=== PATIENT | female | born 1965 | race Caucasian/White ===

== ENCOUNTER 2023-01-12 06:49 | Emergency (ER) | payer OTHER, SELFPAY ==
[2023-01-12] VITALS (11 sets, daily range): BP systolic 102–131; BP diastolic 53–79; PULSE 48–70; RESP 15–18; TEMP 36.3; O2SAT 96–100; BMI 25.9
[2023-01-12 07:40] LABS: Add Manual Diff / Slide Review NO; Basophils Absolute Auto 0 /uL (0-100); Basophils Percent Auto 0.8 % (0-2); Eosinophils Absolute Auto 200 /uL (0-450); Eosinophils Percent Auto 3.9 % (2-4); Hematocrit 45.6 % (36-46); Hemoglobin 15.6 g/dL (12.0-16.0); Lymphocytes Absolute Auto 1800 /uL (1100-4500); Lymphocytes Percent Auto 30.4 % (25-40); Mean Corpuscular HGB Conc 34.3 % (30-36); Mean Corpuscular Hemoglobin 33.1 PG (26-34); Mean Corpuscular Volume 96.6 fL (80-100); Monocytes Absolute Auto 700 /uL (0-900); Neutrophils Absolute Auto 3300 /uL (1500-7000); Neutrophils Percent Auto 53.9 % (50-75); Platelet Count 238 X10^3/uL (150-400); Red Blood Cell Count 4.72 X10^6/uL (4.0-5.2); Red Cell Distribution Width 13.8 % (11.6-14.8)
--- NOTE | 2023-01-12 07:46 | DI.CT.S_ITS ---
PROCEDURE: CT CHEST ABD PEL W CON INDICATIONS: Abdominal pain TECHNIQUE: After the administration of intravenous contrast, 5 mm thick sections acquired from the lung apices to the symphysis. 5 mm coronal and sagittal reformats were performed, with additional 7 mm MIP reformats through the lungs. For radiation dose reduction, the following was used: automated exposure control, adjustment of mA and/or kV according to patient size. COMPARISON: None. FINDINGS: Image quality: Excellent. CHEST: Lungs and pleura: No acute airspace opacities. No pleural effusions or pneumothorax. Central and peripheral airways appear patent and normal in caliber. Biapical scarring. Mild paraseptal emphysema. A few solid pulmonary nodules, and benign juxtapleural nodules. For example, a 2 mm nodule in the right lung apex (series 5, image 61). Mediastinum: Heart size is normal. No pericardial effusion. No mediastinal or hilar adenopathy by size criteria. Thoracic aorta and central pulmonary arteries are normal in size. Esophagus is normal in caliber. No hiatal hernia. Chest wall: No axillary or supraclavicular adenopathy by size criteria. Thyroid gland is unremarkable . ABDOMEN: Solid organs: Liver is normal in size and enhancement. Gallbladder is surgically absent . Biliary system is non dilated. Pancreas enhances normally. Spleen is normal in size and enhancement. No adrenal nodules. Kidneys demonstrate normal size and enhancement, without hydronephrosis. Peritoneum and bowel: Bowel loops demonstrate normal wall thickness and caliber. No free fluid or air. Normal appendix. Nodes and vessels: No retroperitoneal or mesenteric adenopathy by size criteria. Aorta and inferior vena cava are normal in size. Miscellaneous: No ventral hernias. PELVIS: Genitourinary: Bladder wall thickness is normal. Miscellaneous: No inguinal hernias or adenopathy. Bones: No suspicious bony lesions. No vertebral body compression fractures. IMPRESSION: No acute abnormality. Scattered pulmonary micro nodules. Consider [address] per ACR consensus guidelines. Dictated by: Cortez De Anda M.D. on 01/12/2023 at 8:46 Approved by: Cortez De Anda M.D. on 01/12/2023 at 8:52
[2023-01-12] MEDS: ONDANSETRON 4 MG/2 ML INJ IV (07:48)
[2023-01-12] MEDS: SODIUM CHLORIDE 0.9% 500 ML 1000 ML IV (07:49)
--- NOTE | 2023-01-12 07:49 | ED_ITS ---
HPI - Nausea/Vomiting/Diarrhea General Chief complaint: Nausea/Vomiting/Diarrhea Stated complaint: rectal bleeding and vomiting blood Time Seen by Provider: 01/12/23 07:17 Source: patient Mode of arrival: Ambulatory History of Present Illness HPI Narrative: Patient here for bright red blood with hematemesis, not coffee-ground. Also has had dark black stool. This started 6:00 p.m. last night. Has felt tired fatigued and slightly dizzy. No chest pain no palpitations no dyspnea. Patient states 3 days ago started having bilateral lower back pain. No numbness tingling or weakness or syncope. No saddle paresthesia no leg or feet numbness or tingling. Denies any abdominal pain or chest pain. Is not on any blood thinners. Denies daily alcohol use or NSAID use. Patient states she is not allergic to Dilaudid. Patient states she sees GI specialist in [place], has history of intestinal metaplasia, gastroparesis. Just had biopsy 2 weeks ago and noncancerous. Last colonoscopy 1 year ago. Had EGD done 2 weeks ago. Related Data Previous Rx's Medication Instructions Recorded benzonatate 100 mg capsule 100 mg PO BID PRN cough #20 caps 09/08/22 methylprednisolone 4 mg tablets in See Rx Instructions PO PER PKG DIR 09/08/22 a dose pack (Medrol (Art)) #21 ea Allergies Allergy/AdvReac Type Severity Reaction Status Date / Time acetaminophen [From Vicodin] Allergy Severe Anaphylaxis Verified 09/08/22 14:45 codeine Allergy Severe Anaphylaxis Verified 09/08/22 14:45 hydrocodone [From Vicodin] Allergy Severe Anaphylaxis Verified 09/08/22 14:45 moxifloxacin Allergy Severe Anaphylaxis Verified 09/08/22 14:45 bee venom protein (honey bee) Allergy Anaphylaxis Verified 09/08/22 14:45 pencillin Allergy Severe Anaphylaxis Uncoded 09/08/22 14:45 Review of Systems Review of Systems Narrative: GENERAL: negative chills, positive fatigue, malaise, negative fever, sweats. HEENT: negative sinus pain, ear pain, sore throat RESPIRATORY: negative dyspnea, cough CARDIOVASCULAR: negative chest pain, palpitations GASTROINTESTINAL: Positive nausea, vomiting, positive GI bleed negative abdominal pain : negative dysuria, frequency, hematuria MUSCULOSKELETAL: negative muscle or bony pain SKIN: negative rash, skin lesions NEUROLOGIC: negative weakness, numbness, positive dizziness ROS Unobtainable: All systems reviewed & are unremarkable except as noted in HPI and below Patient History Social History Smoking Status: Current every day smoker Smoking Status: Current every day smoker tobacco type: cigarettes alcohol intake frequency: 0-2 drinks per day Alcohol type: beer Substance Use Type: marijuana Exam Narrative Exam Narrative: GENERAL: in no distress, not toxic not dyspneic HEAD: Normocephalic. EYES: Pupils equal round, pink conjunctiva ENT: Mucous membranes moist. NECK: Trachea midline. CARDIOVASCULAR: Regular rate and rhythm without murmurs RESPIRATORY: Clear to auscultation. Breath sounds equal bilaterally. No wheezes, rales, or rhonchi. GASTROINTESTINAL: Abdomen soft, non-tender, abdomen soft nontender no tenderness all 4 quadrants, no peritoneal signs, bowel sounds are present. No CVA t enderness. There is mild tenderness to the bilateral lower paralumbar muscles. No midline tenderness or step-off. EXTREMITIES: No gross deformities. BACK: No flank tenderness. NEURO: AOx4. SKIN: Warm and dry PSYCH: Not anxious, is cooperative Initial Vital Signs Initial Vital Signs: Vital Signs Temperature 97.4 F L 01/12/23 06:59 Pulse Rate 70 01/12/23 06:59 Respiratory Rate 18 01/12/23 06:59 Blood Pressure 128/65 01/12/23 06:59 Pulse Oximetry 100 01/12/23 06:59 Oxygen Delivery Method Room Air 01/12/23 06:59 Course Orders Ordered: Discontinued Medications Hydromorphone HCl (Hydromorphone 1 Mg Inj) 0.5 mg IV NOW ONE Stop: 01/12/23 07:53 Last Admin: 01/12/23 08:18 Dose: 0.5 mg Documented By: NR Hydromorphone HCl (Hydromorphone 1 Mg Inj) 0.5 mg IV NOW ONE Stop: 01/12/23 08:17 Last Admin: 01/12/23 08:18 Dose: 0.5 mg Documented By: NR Sodium Chloride (Normal Saline 0.9%) 500 mls @ 1,000 mls/hr IV BOLUS ONE Stop: 01/12/23 07:48 Last Infusion: 01/12/23 08:23 Dose: 0 mls/hr Documented By: Admin: 01/12/23 07:49 Dose: 1,000 mls/hr Documented By: COBY Ondansetron HCl (Ondansetron 4 Mg/2 Ml Inj) 4 mg IV NOW ONE Stop: 01/12/23 07:20 Last Admin: 01/12/23 07:48 Dose: 4 mg Documented By: NR Pantoprazole Sodium (Pantoprazole 40 Mg Vial) 40 mg IV NOW ONE Stop: 01/12/23 07:59 Last Admin: 01/12/23 08:15 Dose: 40 mg Documented By: NR Vital Signs Vital signs: Vital Signs - 8 hr 01/12/23 06:59 01/12/23 07:32 01/12/23 07:33 Temperature 97.4 F L Pulse Rate 70 57 L 56 L Respiratory Rate 18 Blood Pressure 128/65 Pulse Oximetry 100 100 100 Oxygen Delivery Method Room Air 01/12/23 07:33 01/12/23 07:46 01/12/23 07:46 Temperature Pulse Rate 61 Respiratory Rate Blood Pressure 127/57 L 105/53 L Pulse Oximetry 96 Oxygen Delivery Method 01/12/23 08:09 01/12/23 08:16 01/12/23 08:16 Temperature Pulse Rate 53 L 59 L Respiratory Rate Blood Pressure 109/79 Pulse Oximetry 96 99 Oxygen Delivery Method 01/12/23 08:30 01/12/23 08:31 01/12/23 08:31 Temperature Pulse Rate 50 L 57 L Respiratory Rate Blood Pressure 102/62 Pulse Oximetry 97 97 Oxygen Delivery Method 01/12/23 08:46 01/12/23 08:46 01/12/23 09:00 Temperature Pulse Rate 48 L 49 L Respiratory Rate 15 18 Blood Pressure 119/70 Pulse Oximetry 98 99 Oxygen Delivery Method 01/12/23 09:01 01/12/23 09:01 Temperature Pulse Rate 50 L Respiratory Rate 18 Blood Pressure 131/76 Pulse Oximetry 97 Oxygen Delivery Method MDM - Nausea/Vomiting/Diarrhea Lab Data 01/12/23 07:30 01/12/23 07:30 Labs: Lab Results 01/12/23 01/12/23 01/12/23 Range/Units 07:30 07:30 07:30 WBC 6.0 (4.5-11.0) X10^3/uL RBC 4.72 (4.0-5.2) X10^6/uL Hgb 15.6 (12.0-16.0) g/dL Hct 45.6 (36-46) % MCV 96.6 (80-100) fL MCH 33.1 (26-34) PG MCHC 34.3 (30-36) % RDW 13.8 (11.6-14.8) % Plt Count 238 (150-400) X10^3/uL Neut % (Auto) 53.9 (50-75) % Lymph % (Auto) 30.4 (25-40) % [place] % (Auto) 11.0 (3-14) % Eos % (Auto) 3.9 (2-4) % Baso % (Auto) 0.8 (0-2) % Neut # (Auto) 3300 (7817-8616) /uL Lymph # (Auto) 1800 (5820-5000) /uL [place] # (Auto) 700 (0-900) /uL Eos # (Auto) 200 (0-450) /uL Baso # (Auto) 0 (0-100) /uL PT 10.8 (10.1-12.7) SECONDS INR 0.9 (0.9-1.3) APTT 33 (26-36) SECONDS Sodium 139 (137-145) mmol/L Potassium 3.9 (3.4-5.1) mmol/L Chloride 105 (98-107) mmol/L Carbon Dioxide 28 (22-32) mmol/L BUN 9 (7-17) mg/dL Creatinine 0.70 (0.52-1.04) mg/dL Estimated GFR > 60 (>60) mL/min BUN/Creatinine Ratio 12.9 (6-22) Glucose 97 (70-100) mg/dL Calcium 8.9 (8.4-10.2) mg/dL Total Bilirubin 1.3 (0.2-1.3) mg/dL AST 25 (14-36) IU/L ALT 24 (<35) IU/L Alkaline Phosphatase 108 (38-126) U/L Total Creatine Kinase 108 (30-135) U/L CK-MB (CK-2) 0.47 (<2.37) ng/mL CK-MB (CK-2) Rel Index 0.4 L (1.5-5.0) % Troponin I < 0.012 (0.01-0.034) ng/mL Total Protein 7.4 (6.3-8.2) g/dL Albumin 4.3 (3.5-5.0) g/dL Globulin 3.1 (1.7-4.1) g/dL Albumin/Globulin Ratio 1.4 (1.0-2.8) Lipase 94 (23-300) U/L Urine Dip Bedside Urine Glucose Negative Bedside Urine Bilirubin - Negative Bedside Urine Ketone - Negative Urine Specific Wheeler 1.020 Bedside Urine Occult Blood - Negative Bedside Urine pH 6.0 Bedside Urine Protein - Negative Bedside Urine Urobilinogen - Negative Bedside Urine Nitrite - Negative Bedside Urine Leukocytes - Negative Esterase Imaging Data CT chest abdomen and pelvis: Radiologist's Impression: CHEST: Lungs and pleura: No acute airspace opacities. No pleural effusions or pneumothorax. Central and peripheral airways appear patent and normal in caliber. Biapical scarring. Mild paraseptal emphysema. A few solid pulmonary nodules, and benign juxtapleural nodules. For example, a 2 mm nodule in the right lung apex (series 5, image 61). Mediastinum: Heart size is normal. No pericardial effusion. No mediastinal or hilar adenopathy by size criteria. Thoracic aorta and central pulmonary arteries are normal in size. Esophagus is normal in caliber. No hiatal hernia. Chest wall: No axillary or supraclavicular adenopathy by size criteria. Thyroid gland is unremarkable . ABDOMEN: Solid organs: Liver is normal in size and enhancement. Gallbladder is surgically absent . Biliary system is non dilated. Pancreas enhances normally. Spleen is normal in size and enhancement. No adrenal nodules. Kidneys demonstrate normal size and enhancement, without hydronephrosis. Peritoneum and bowel: Bowel loops demonstrate normal wall thickness and caliber. No free fluid or air. Normal appendix. Nodes and vessels: No retroperitoneal or mesenteric adenopathy by size criteria. Aorta and inferior vena cava are normal in size. Miscellaneous: No ventral hernias. PELVIS: Genitourinary: Bladder wall thickness is normal. Miscellaneous: No inguinal hernias or adenopathy. Bones: No suspicious bony lesions. No vertebral body compression fractures. IMPRESSION: No acute abnormality. Scattered pulmonary micro nodules. Consider [address] per ACR consensus guidelines. MDM Narrative Medical decision making narrative: Patient here for bright red blood with hematemesis, not coffee-ground. Also has had dark black stool. This started 6:00 p.m. last night. Has felt tired fatigued and slightly dizzy. No chest pain no palpitations no dyspnea. Patient states 3 days ago started having bilateral lower back pain. No numbness tingling or weakness or syncope. No saddle paresthesia no leg or feet numbness or tingling. Denies any abdominal pain or chest pain. Is not on any blood thinners. Denies daily alcohol use or NSAID use. Patient states she is not allergic to Dilaudid. Patient states she sees GI specialist in [place], has history of intestinal metaplasia, gastroparesis. Just had biopsy 2 weeks ago and noncancerous. Last colonoscopy 1 year ago. Had EGD done 2 weeks ago. After history and exam CBC CMP lipase PT PTT EKG troponin CT chest abdomen pelvis ordered MDM CC: Hematemesis, GI bleed Complicating co-morbidities: History of gastroparesis, intestinal metaplasia Data collected from: Patient Medical records reviewed: December 16, [address] [facility] [address] [place] gastro[facility]ology upper GI endoscopy reviewed. Esophagitis noted. Dilation was performed. Negative H pylori. No chronic gastritis. Biopsies were completed. Differential considered: Includes but not limited to upper GI bleed lower GI bleed diverticulosis diverticulitis, neoplasm Exam documented above, pertinent findings include: Nontender abdomen no CVA tenderness Lab Test results independently reviewed as above. Pertinent findings: WBC 6.0 hemoglobin 15.6 hematocrit 45 platelets 238 AST 25 ALT 24 alkaline phosphatase 108 troponin less than 0.012 lipase 94 Independently reviewed EKG as above sinus bradycardia rate [address] elevation or depression Imaging studies independently reviewed: CT chest abdomen pelvis no acute process Consultations: Treatments: Dilaudid Zofran normal saline Protonix Re-evaluations: 7:45 a.m.. Patient states now she is having left lower quadrant abdominal pain. 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 She states she is had Dilaudid for pain in the past. No side effects or allergic reaction 9:08 a.m.. Updated patient results. Patient denies any dysuria with these symptoms. At this time laboratory studies are reassuring. As well as imaging. She will need to follow up with her wireless internet installer for likely repeat endoscopy. She is on omeprazole, she states her GI doctor has placed her on many different antacids. They are trying to find the right balance. Return precautions reviewed with her not toxic at discharge. Urinalysis point of care negative. No new prescriptions indicated at this time. Pain is controlled. She desires discharge home. Reviewed with her black stool likely upper GI bleed by the time it reaches the colon it becomes very dark. She understands. Discussion: Appropriate for discharge home. Not toxic at discharge. Return precautions reviewed with patient. She does have gastroenterology services to follow up with. No new medications indicated at this time. She desires discharge home. 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 No dyspnea. No syncope. No t achycardia no hypotension no hypoxia, lower back pain nonspecific. I did discuss with patient. She had this before doing yard work. Appropriate for outpatient follow up with her wireless internet installer. Diagnosis: Hematemesis/gastritis Discharge Plan Departure Patient Disposition: Home Clinical Impression: Hematemesis Instructions: Gastrointestinal Bleeding Activity Restrictions/Additional Instructions: Please call your gastroenterology provider today for office re-evaluation within a week and to possibly schedule endoscopy of the stomach as well as colonoscopy. Please do continue home medications and antacids. Return if worse if any questions or concerns or any dizziness/weakness/short of breath or increase bleeding/vomiting blood/black stools. Prescriptions: No Action methylprednisolone [Medrol (Art)] 4 mg tablets,dose pack See Rx Instructions PO PER PKG DIR Qty: 21 0RF Rx Instructions: PO PER PKG DIR benzonatate 100 mg capsule 100 mg PO BID PRN (Reason: cough) Qty: 20 0RF Referrals: Miscellaneous,DoctorMD [Primary Care Provider] - Stand Alone Forms: Patient Portal/API
[2023-01-12 07:54] LABS: INR 0.9 (0.9-1.3); Prothrombin Time 10.8 SECONDS (10.1-12.7)
[2023-01-12 07:56] LABS: PTT Partial Thromboplastin Tim 33 SECONDS (26-36)
[2023-01-12 07:59] LABS: HEMOLYSIS < 15 (0-50); Potassium 3.9 mmol/L (3.4-5.1)
[2023-01-12 08:00] LABS: Alanine Aminotransferase 24 IU/L (<35); Albumin 4.3 g/dL (3.5-5.0); Albumin Globulin Ratio 1.4 (1.0-2.8); Alkaline Phosphatase 108 U/L (38-126); Aspartate Aminotransferase 25 IU/L (14-36); BUN Creatinine Ratio 12.9 (6-22); Bilirubin Total 1.3 mg/dL (0.2-1.3); Blood Urea Nitrogen 9 mg/dL (7-17); Calcium 8.9 mg/dL (8.4-10.2); Carbon Dioxide 28 mmol/L (22-32); Chloride 105 mmol/L (98-107); Creatine Kinase 108 U/L (30-135); Estimated Glomerular Filt Rate > 60 mL/min (>60); Globulin 3.1 g/dL (1.7-4.1); Glucose 97 mg/dL (70-100); Lipase 94 U/L (23-300); Sodium 139 mmol/L (137-145); Total Protein 7.4 g/dL (6.3-8.2)
[2023-01-12 08:11] LABS: Troponin I < 0.012 ng/mL (0.01-0.034)
[2023-01-12 08:15] LABS: CKMB % Relative Index 0.4 % (1.5-5.0); Creatine Kinase MB 0.47 ng/mL (<2.37)
[2023-01-12] MEDS: PANTOPRAZOLE 40 MG VIAL IV (08:15)
[2023-01-12] MEDS: HYDROMORPHONE 1 MG INJ 0.5 MG IV ×2 (08:18)
== END 2023-01-12 09:22 | disposition home or self-care (01) ==
PROVIDERS: Emergency Provider Emergency Medicine
DX: K92.0 Hematemesis (principal); R10.32 Left lower quadrant pain; K62.5 Hemorrhage of anus and rectum
CPT/HCPCS: 36415; 71260; 74177; 80053; 81003; 82550; 82553; 83690; 84484; 85025; 85610; 85730; 93005; 96361; 96374; 96375; 99284; C9113; J1170; J2405

== ENCOUNTER 2023-04-29 08:56 | Emergency (ER) | payer OTHER, SELFPAY ==
[2023-04-29] VITALS (7 sets, daily range): BP systolic 116–139; BP diastolic 68–79; PULSE 55–65; RESP 16–24; TEMP 36.8; O2SAT 97–100; BMI 25.4
--- NOTE | 2023-04-29 09:03 | ED.GENADULT ---
HPI - General Adult General Chief complaint: Allergic Reaction Stated complaint: stung by bee, used EPI, feeling chest tightness Time Seen by Provider: 04/29/23 09:02 History of Present Illness HPI narrative: 58-year-old female daily smoker with extensive history of anaphylaxis presents with a chief complaint a bee sting at about 7:50 a.m. this morning. She is had significant reactions in the past and almost immediately use her epinephrine pen. She was stung on her left ankle. She denies any symptoms such as itching, rash, swelling of face, tongue, lip, throat, no trouble breathing, no GI symptoms such as nausea, vomiting or diarrhea. She did not take any other medications other than epinephrine such as Benadryl. After administering the epinephrine she feels a bit jittery but is otherwise well Related Data Previous Rx's Medication Instructions Recorded epinephrine 0.3 mg/0.3 mL 0.3 mg (0.3 mL) IM Q5-15M PRN 04/29/23 injection, auto-injector (EpiPen anaphylaxis #2 ea 2-Art) prednisone 20 mg tablet 20 mg PO DAILY #5 tabs 04/29/23 Allergies Allergy/AdvReac Type Severity Reaction Status Date / Time acetaminophen [From Vicodin] Allergy Severe Anaphylaxis Verified 04/29/23 09:17 codeine Allergy Severe Anaphylaxis Verified 04/29/23 09:17 hydrocodone [From Vicodin] Allergy Severe Anaphylaxis Verified 04/29/23 09:17 moxifloxacin Allergy Severe Anaphylaxis Verified 04/29/23 09:17 bee venom protein (honey bee) Allergy Anaphylaxis Verified 04/29/23 09:17 pencillin Allergy Severe Anaphylaxis Uncoded 04/29/23 09:17 Review of Systems Review of Systems Narrative: GENERAL: Denies chills, fatigue, malaise, fever, sweats. HEENT: Denies sinus pain, ear pain, sore throat, difficulty swallowing, dizziness. RESPIRATORY: Denies dyspnea, cough, wheezing, hemoptysis, sputum. CARDIOVASCULAR: Denies chest pain, palpitations, orthopnea, edema, GASTROINTESTINAL: Denies nausea, vomiting, abdominal pain, diarrhea, constipation, melena. : Denies dysuria, frequency, incontinence, hematuria, urinary retention. MUSCULOSKELETAL: denies weakness, joint pain, or bony pain SKIN: Denies rash, skin lesions, or other NEUROLOGIC: Denies weakness, headache, numbness, change in speech, confusion, seizures, incoordination. PSYCHIATRIC: No concerning psychosocial issues. 12 point review of systems is negative except for those stated above Patient History Social History Smoking Status: Current every day smoker Smoking Status: Current every day smoker tobacco type: cigarettes alcohol intake frequency: 0-2 drinks per day Alcohol type: beer Substance Use Type: marijuana Exam Narrative Exam Narrative: GENERAL: [58] year old patient appears stated age. Well-developed patient, in mild distress. HEAD: Atraumatic. Normocephalic. EYES: Pupils equal round and reactive. Extraocular motions intact. No scleral icterus. No injection or drainage. ENT: Nose without bleeding, purulent drainage. Throat without erythema, tonsillar hypertrophy or exudate. Airway patent. NECK: Trachea midline. Non tender CARDIOVASCULAR: Regular rate and rhythm without murmurs, gallops, or rubs. RESPIRATORY: Clear to auscultation. Breath sounds equal bilaterally. No wheezes, rales, or rhonchi. GASTROINTESTINAL: Abdomen soft, non-tender, nondistended. EXTREMITIES: No edema or joint tenderness. BACK: Nontender without deformity or crepitance. No flank tenderness. NEURO: AOx3. SKIN: No rash or erythema of visible areas Initial Vital Signs Initial Vital Signs: Vital Signs Temperature 98.2 F 04/29/23 09:05 Pulse Rate 65 04/29/23 09:05 Respiratory Rate 24 04/29/23 09:05 Blood Pressure 130/79 04/29/23 09:05 Pulse Oximetry 100 04/29/23 09:05 Oxygen Delivery Method Room Air 04/29/23 09:05 Course Orders Ordered: Discontinued Medications Dexamethasone (Dexamethasone 10 Mg/Ml Vial) 10 mg PO NOW ONE Stop: 04/29/23 09:03 Last Admin: 04/29/23 09:11 Dose: 10 mg Documented By: NR Diphenhydramine HCl (Diphenhydramine 25 Mg Tablet) 50 mg PO NOW ONE Stop: 04/29/23 09:03 Last Admin: 04/29/23 09:11 Dose: 50 mg Documented By: NR Famotidine (Famotidine 20 Mg Tablet) 20 mg PO NOW ONE Stop: 04/29/23 09:04 Last Admin: 04/29/23 09:11 Dose: 20 mg Documented By: NR Vital Signs Vital signs: Vital Signs - 8 hr 04/29/23 09:05 04/29/23 09:13 04/29/23 09:30 Temperature 98.2 F Pulse Rate 65 61 Respiratory Rate 24 Blood Pressure 130/79 129/78 Pulse Oximetry 100 100 Oxygen Delivery Method Room Air 04/29/23 09:30 04/29/23 09:40 04/29/23 09:40 Temperature Pulse Rate 57 L 64 Respiratory Rate Blood Pressure 116/68 Pulse Oximetry 97 99 Oxygen Delivery Method 04/29/23 10:00 04/29/23 10:00 04/29/23 10:29 Temperature Pulse Rate 56 L 55 L Respiratory Rate 16 Blood Pressure 118/77 Pulse Oximetry 98 99 Oxygen Delivery Method Room Air 04/29/23 10:30 Temperature Pulse Rate Respiratory Rate Blood Pressure 139/74 Pulse Oximetry Oxygen Delivery Method Medical Decision Making MDM Narrative Medical decision making narrative: [58] year old patient presents with bee sting and history of anaphylaxis, lacking any symptoms other than pain at the sting location Multiple etiologies for patient's symptoms considered including, but not limited to: [Local reaction versus anaphylaxis versus other] Prior Charts reviewed in our EMR Primary Historian: patient History and physical exam are very reassuring, no elements suggestive of allergic reaction in her history nor on her exam here in the department. She is observed for 90 minutes and requests discharge. Findings and discharge diagnosis discussed with patient/family followed by verbalization of understanding Return precautions discussed with patient/family whom verbalize understanding of diagnosis and plan Discharge Plan Departure Patient Disposition: Home Clinical Impression: Accidental bee sting Instructions: DI for Insect Bites and Stings Activity Restrictions/Additional Instructions: *You have been diagnosed with [allergic reaction] *What to do: *Please continue to take your regular medications as directed. [x ] New medication prescriptions sent to your pharmacy: [ [facility]] [ ] New medication written as a paper prescription [ ] No new medications given *Please consider the routine use of over the counter antihistamines over the next few days 1. H1 blockers: Benadryl (Diphenhydramine), Zyrtec (Cetirizine), Hope (Fexofenadine) or Claritin (Loratadine) along with, 2. H2 blockers: Famotidine or Cimetidine *If you can please avoid what triggered your reaction today *Please follow up with your primary care provider in 2-3 days, call for an appointment. Let them know you were seen in the Emergency Department and that we ask that you be seen in follow up. We will electronically transmit a record of today's note if your PCP is in our system *If you do not have a primary care provider please contact the [facility] Resource line at [phone]. They will ask some questions about your medical history and help get you set up with a doctor in the community. *Return to Emergency Department if you should have any new, worsening or concerning symptoms, such as swelling of tongue, throat, trouble breathing, or other concerning symptoms Prescriptions: New prednisone 20 mg tablet 20 mg PO DAILY Qty: 5 0RF Rx Instructions: administer with food or milk epinephrine [EpiPen 2-Art] 0.3 mg/0.3 mL auto-injector 0.3 mg IM Q5-15M PRN (Reason: anaphylaxis) Qty: 2 0RF Rx Instructions: do not exceed 3 doses per episode Referrals: Fran Askew MD [Primary Care Provider] - Stand Alone Forms: Patient Portal/API, Work Release Note
[2023-04-29] MEDS: FAMOTIDINE 20 MG TABLET PO (09:11)
[2023-04-29] MEDS: DEXAMETHASONE 10 MG/ML VIAL PO (09:11)
[2023-04-29] MEDS: diphenhydrAMINE 25 MG TABLET 50 MG PO (09:11)
== END 2023-04-29 10:39 | disposition home or self-care (01) ==
PROVIDERS: Emergency Provider Emergency Medicine; PCP Family Medicine
DX: T63.441A Toxic effect of venom of bees, accidental (unintentional), initial encounter (principal); Z87.892 Personal history of anaphylaxis
CPT/HCPCS: 99283; A9270; J1100

== ENCOUNTER 2023-06-24 07:48 | Emergency (ER) | payer OTHER, SELFPAY ==
[2023-06-24 08:01] VITALS: BP 105/69; PULSE 65; RESP 18; TEMP 37.1; O2SAT 99; BMI 24.3
--- NOTE | 2023-06-24 08:18 | ED.URI ---
HPI - URI/Sore Throat General Chief Complaint: Upper Respiratory Symptoms Stated Complaint: covid+ T-7/pain on RT side head/dry heaves/dehydra Time Seen by Provider: 06/24/23 08:17 Source: patient Mode of arrival: Family Vehicle History of Present Illness HPI Narrative: Patient is a 58-year-old female with multiple anaphylactic allergies presenting today with headache nausea vomiting diarrhea. She says she self tested for COVID 1 week ago after travel. However she has headache behind her left eye she sensitive to light. She is been taking [id number] medications without any relief. She reports that she is dry heaving this morning. She is not able to keep anything down. She is had a couple episodes of diarrhea but does not report that the diarrhea is bad. Really complaining of headache today. She is currently afebrile Related Data Previous Rx's Medication Instructions Recorded epinephrine 0.3 mg/0.3 mL 0.3 mg (0.3 mL) IM Q5-15M PRN 04/29/23 injection, auto-injector (EpiPen anaphylaxis #2 ea 2-Art) prednisone 20 mg tablet 20 mg PO DAILY #5 tabs 04/29/23 ondansetron 4 mg disintegrating 4 mg PO Q8H PRN nausea and 06/24/23 tablet vomiting #20 tabs Allergies Allergy/AdvReac Type Severity Reaction Status Date / Time acetaminophen [From Vicodin] Allergy Severe Anaphylaxis Verified 06/24/23 08:06 codeine Allergy Severe Anaphylaxis Verified 06/24/23 08:06 hydrocodone [From Vicodin] Allergy Severe Anaphylaxis Verified 06/24/23 08:06 moxifloxacin Allergy Severe Anaphylaxis Verified 06/24/23 08:06 bee venom protein (honey bee) Allergy Anaphylaxis Verified 06/24/23 08:06 pencillin Allergy Severe Anaphylaxis Uncoded 06/24/23 08:06 Review of Systems Review of Systems ROS Unobtainable: All systems reviewed & are unremarkable except as noted in HPI and below Patient History Social History Smoking Status: Current every day smoker Smoking Status: Current every day smoker tobacco type: cigarettes alcohol intake frequency: 0-2 drinks per day Alcohol type: beer Substance Use Type: marijuana Exam Initial Vital Signs Initial Vital Signs: Vital Signs Temperature 98.8 F 06/24/23 08:01 Pulse Rate 65 06/24/23 08:01 Respiratory Rate 18 06/24/23 08:01 Blood Pressure 105/69 06/24/23 08:01 Pulse Oximetry 99 06/24/23 08:01 Oxygen Delivery Method Room Air 06/24/23 08:01 GENERAL: Alert 58-year-old female appears in pain in dark room clutching head HEENT: Head atraumatic,EOMI, pupils reactive, face symmetric, neck supple CARDIOVASCULAR: Regular rate and rhythm without murmurs, rubs or gallops. RESPIRATORY: Breath sounds equal bilaterally, no wheezes rales or rhonchi. ABDOMEN: Soft, nontender. Normoactive bowel sounds all 4 quadrants. No guarding or rebound. EXTREMITIES: Normal range of motion, no clubbing or edema. Neurovascularly intact NEUROLOGICAL: Alert and oriented x4.Normal gait and speech. SKIN: Warm, dry, no laceration, no petechiae, no rashes or lesions. Scores NIH Stroke Scale Level of Conciousness: Alert, keenly responsive Ask month/age: Answers both questions correctly. Open/close eyes, close hand: Performs both tasks correctly Best gaze horizontal: Normal Visual moore: No visual loss Facial palsy: Normal symetrical movement Left arm drift: No drift for full 10 sec Right arm drift: No drift for full 10 sec Left leg drift: No drift for full 5 sec Right leg drift: No drift for full 5 sec Limb ataxia: Absent Sensory on face/arms/legs: Normal, no sensory loss Best language: No aphasia, normal Dysarthria: Normal Extinction or inattention: No abnormality Total NIH Stroke scale score: 0 Course Orders Ordered: ED Orders 06/24/23 08:50 CBC Auto Diff [Complete Blood Count AUTO DIFF] Stat CMP [Comprehensive Metabolic Panel] Stat Discontinued Medications Diphenhydramine HCl (Diphenhydramine 50 Mg/Ml Vial) 25 mg IV NOW ONE Stop: 06/24/23 08:43 Last Admin: 06/24/23 08:50 Dose: 25 mg Documented By: BRIAN Sodium Chloride (Normal Saline 0.9%) 1,000 mls @ 1,000 mls/hr IV BOLUS ONE Stop: 06/24/23 09:41 Last Infusion: 06/24/23 09:52 Dose: Infused Documented By: Admin: 06/24/23 08:50 Dose: 1,000 mls/hr Documented By: BRIAN Ketorolac Tromethamine (Ketorolac 30 Mg/Ml Vial) 15 mg IV NOW ONE Stop: 06/24/23 08:43 Last Admin: 06/24/23 08:50 Dose: 15 mg Documented By: BRIAN Metoclopramide HCl (Metoclopramide 10 Mg/2 Ml Inj) 10 mg IV NOW ONE Stop: 06/24/23 08:43 Last Admin: 06/24/23 08:50 Dose: 10 mg Documented By: BRIAN Vital Signs Vital signs: Vital Signs - 8 hr 06/24/23 08:01 06/24/23 08:49 06/24/23 08:50 Temperature 98.8 F Pulse Rate 65 59 L Respiratory Rate 18 Blood Pressure 105/69 107/66 Pulse Oximetry 99 94 Oxygen Delivery Method Room Air 06/24/23 08:50 06/24/23 09:00 06/24/23 09:00 Temperature Pulse Rate 59 L 56 L Respiratory Rate 16 Blood Pressure 124/75 Pulse Oximetry 100 100 Oxygen Delivery Method Room Air 06/24/23 09:29 06/24/23 09:30 Temperature Pulse Rate 56 L Respiratory Rate Blood Pressure 99/62 Pulse Oximetry 99 Oxygen Delivery Method MDM - URI/Sore Throat Lab Data 06/24/23 08:50 06/24/23 08:50 Labs: Lab Results 06/24/23 Range/Units 08:50 WBC 4.0 L (4.5-11.0) X10^3/uL RBC 4.81 (4.0-5.2) X10^6/uL Hgb 16.2 H (12.0-16.0) g/dL Hct 46.8 H (36-46) % MCV 97.2 (80-100) fL MCH 33.6 (26-34) PG MCHC 34.5 (30-36) % RDW 13.3 (11.6-14.8) % Plt Count 187 (150-400) X10^3/uL Neut % (Auto) 52.0 (50-75) % Lymph % (Auto) 25.9 (25-40) % [place] % (Auto) 19.3 H (3-14) % Eos % (Auto) 2.1 (2-4) % Baso % (Auto) 0.7 (0-2) % Neut # (Auto) 2100 (4668-7205) /uL Lymph # (Auto) 1000 L (3831-5313) /uL [place] # (Auto) 800 (0-900) /uL Eos # (Auto) 100 (0-450) /uL Baso # (Auto) 0 (0-100) /uL Sodium 135 L (137-145) mmol/L Potassium 4.5 (3.4-5.1) mmol/L Chloride 101 (98-107) mmol/L Carbon Dioxide 28 (22-32) mmol/L BUN 7 (7-17) mg/dL Creatinine 0.73 (0.52-1.04) mg/dL Estimated GFR > 60 (>60) mL/min BUN/Creatinine Ratio 9.6 (6-22) Glucose 92 (70-100) mg/dL Calcium 8.9 (8.4-10.2) mg/dL Total Bilirubin 0.8 (0.2-1.3) mg/dL AST 43 H (14-36) IU/L ALT 78 H (<35) IU/L Alkaline Phosphatase 135 H (38-126) U/L Total Protein 7.6 (6.3-8.2) g/dL Albumin 4.1 (3.5-5.0) g/dL Globulin 3.5 (1.7-4.1) g/dL Albumin/Globulin Ratio 1.2 (1.0-2.8) Urine Dip Bedside Urine Glucose Negative Bedside Urine Bilirubin - Negative Bedside Urine Ketone - Negative Urine Specific [place] 1.015 Bedside Urine Occult Blood - Negative Bedside Urine pH 6.0 Bedside Urine Protein - Negative Bedside Urine Urobilinogen - Negative Bedside Urine Nitrite - Negative Bedside Urine Leukocytes - Negative Esterase MDM Narrative Medical decision making narrative: Patient 58-year-old female presents today with COVID headache nausea vomiting diarrhea. Overall appeared very uncomfortable initially. She was given IV fluids Toradol Reglan Benadryl migraine cocktail and is feeling significantly better. Blood work has been reviewed and is overall reassuring. Mild elevation of liver enzymes not considered clinically significant. She is tolerating fluids. No need for any further workup or admission. NIH stroke scale is 0 no concern for stroke. Discharge Plan Departure Patient Disposition: Home Clinical Impression: Headache Instructions: DI for Headache Activity Restrictions/Additional Instructions: *You have been diagnosed with migraine headache with COVID *What to do: Drain stay hydrated with Pedialyte Gatorade or like substance. Rest as needed *Continue to take medications as directed Zofran 4 mg every 8 hours if needed for nausea or vomiting Motrin 600 mg every 6 hours if needed for ozaj-sq-cxllfzpu pain Tylenol 1000 mg every 6 hours if needed for lryu-vx-[id number] pain *Follow up with your primary care provider in 2-3 days or call [phone] *Return to ER if you should have persistent pain persistent vomiting shortness of breath, unable to keep fluids down despite medication or any new, worsening or concerning symptoms Prescriptions: New ondansetron 4 mg tablet,disintegrating 4 mg PO Q8H PRN (Reason: nausea and vomiting) Qty: 20 0RF No Action prednisone 20 mg tablet 20 mg PO DAILY Qty: 5 0RF Rx Instructions: administer with food or milk epinephrine [EpiPen 2-Art] 0.3 mg/0.3 mL auto-injector 0.3 mg IM Q5-15M PRN (Reason: anaphylaxis) Qty: 2 0RF Rx Instructions: do not exceed 3 doses per episode Referrals: Fran Askew MD [Primary Care Provider] - Stand Alone Forms: Patient Portal/API
[2023-06-24 08:49] VITALS: PULSE 59; O2SAT 94
[2023-06-24 08:50] VITALS: BP 107/66; PULSE 59; O2SAT 100
[2023-06-24] MEDS: SODIUM CHLORIDE 0.9% 1,000 ML 1000 ML IV (08:50)
[2023-06-24] MEDS: KETOROLAC 30 MG/ML VIAL 15 MG IV (08:50)
[2023-06-24] MEDS: diphenhydrAMINE 50 MG/ML VIAL 25 MG IV (08:50)
[2023-06-24] MEDS: METOCLOPRAMIDE 10 MG/2 ML INJ IV (08:50)
[2023-06-24 08:57] LABS: Add Manual Diff / Slide Review NO; Basophils Absolute Auto 0 /uL (0-100); Basophils Percent Auto 0.7 % (0-2); Eosinophils Absolute Auto 100 /uL (0-450); Eosinophils Percent Auto 2.1 % (2-4); Hematocrit 46.8 % (36-46); Hemoglobin 16.2 g/dL (12.0-16.0); Lymphocytes Absolute Auto 1000 /uL (1100-4500); Lymphocytes Percent Auto 25.9 % (25-40); Mean Corpuscular HGB Conc 34.5 % (30-36); Mean Corpuscular Hemoglobin 33.6 PG (26-34); Mean Corpuscular Volume 97.2 fL (80-100); Monocytes Absolute Auto 800 /uL (0-900); Monocytes Percent Auto 19.3 % (3-14); Neutrophils Absolute Auto 2100 /uL (1500-7000); Platelet Count 187 X10^3/uL (150-400); Red Blood Cell Count 4.81 X10^6/uL (4.0-5.2); Red Cell Distribution Width 13.3 % (11.6-14.8)
[2023-06-24 09:00] VITALS: BP 124/75; PULSE 56; RESP 16; O2SAT 100
[2023-06-24 09:12] LABS: Alanine Aminotransferase 78 IU/L (<35); Albumin 4.1 g/dL (3.5-5.0); Albumin Globulin Ratio 1.2 (1.0-2.8); Alkaline Phosphatase 135 U/L (38-126); Aspartate Aminotransferase 43 IU/L (14-36); BUN Creatinine Ratio 9.6 (6-22); Bilirubin Total 0.8 mg/dL (0.2-1.3); Blood Urea Nitrogen 7 mg/dL (7-17); Calcium 8.9 mg/dL (8.4-10.2); Carbon Dioxide 28 mmol/L (22-32); Chloride 101 mmol/L (98-107); Estimated Glomerular Filt Rate > 60 mL/min (>60); Globulin 3.5 g/dL (1.7-4.1); Glucose 92 mg/dL (70-100); HEMOLYSIS 30 (0-50); Potassium 4.5 mmol/L (3.4-5.1); Sodium 135 mmol/L (137-145); Total Protein 7.6 g/dL (6.3-8.2)
[2023-06-24 09:29] VITALS: PULSE 56; O2SAT 99
[2023-06-24 09:30] VITALS: BP 99/62; PULSE 57; O2SAT 97
== END 2023-06-24 10:22 | disposition home or self-care (01) ==
PROVIDERS: Emergency Provider Emergency Medicine; PCP Family Medicine
DX: U07.1 COVID-19 (principal); R51.9 Headache, unspecified
CPT/HCPCS: 36415; 80053; 81003; 85025; 96361; 96374; 96375; 99284; J1200; J1885; J2765

== ENCOUNTER 2024-01-24 07:10 | Emergency (ER) | payer OTHER, SELFPAY ==
[2024-01-24 07:26] VITALS: BP 105/72; PULSE 67; RESP 18; TEMP 36.5; O2SAT 100; BMI 24.3
--- NOTE | 2024-01-24 07:51 | PC.NURSE ---
Pt was stung by bee yesterday; states she took 2 epi pens yesterday. Pinky toe swollen; no evidence of airway compromise or facial edema.
--- NOTE | 2024-01-24 08:06 | ED_ITS ---
HPI - Allergic Reaction General Chief complaint: Allergic Reaction Stated complaint: stung on baby toe left foot bee Time Seen by Provider: 01/24/24 07:24 Source: patient Mode of arrival: Family Vehicle History of Present Illness HPI narrative: 58-year-old woman with an anaphylactic reaction to bee stings. Was working outside wearing broken stocks, got stung by a bumble bee on her left small toe yesterday. She used her EpiPen twice and did not feel ill or experienced another adverse effects she felt emergency department evaluation was required. This morning the left small toe is swollen and quite tender. She was concerned that the stinger might still be in and was scratching at a couple of areas to try to get it out. She has not having any wheezing she does note some mild nausea but no overt vomiting. She does need refills of her EpiPen. Related Data Home Medications Medication Instructions Recorded Confirmed albuterol sulfate 90 mcg/actuation inhalation 07/01/23 07/01/23 aerosol inhaler baclofen 10 mg tablet 10 mg PO 3XD 07/01/23 07/01/23 estradiol 0.5 mg tablet 0.5 mg PO DAILY 07/01/23 07/01/23 ibuprofen 600 mg tablet 600 mg PO Q6H PRN 07/01/23 07/01/23 sucralfate 1 gram tablet 1 g PO 4XD 07/01/23 07/01/23 Previous Rx's Medication Instructions Recorded epinephrine 0.3 mg/0.3 mL 0.3 mg (0.3 mL) IM Q5-15M PRN 04/29/23 injection, auto-injector (EpiPen anaphylaxis #2 ea 2-Art) ondansetron 4 mg disintegrating 4 mg PO Q8H PRN nausea and 06/24/23 tablet vomiting #20 tabs benzonatate 100 mg capsule 100 mg PO TID PRN cough #14 caps 07/01/23 epinephrine 0.3 mg/0.3 mL 0.3 mg (0.3 mL) IM Q5-15M PRN 01/24/24 injection, auto-injector anaphylaxis #2 ea methylprednisolone 4 mg tablets in See Rx Instructions PO .COMPLEX 01/24/24 a dose pack (Medrol (Art)) #21 ea ondansetron 4 mg disintegrating 4 mg PO Q8H PRN nausea and 01/24/24 tablet vomiting #14 tabs Allergies Allergy/AdvReac Type Severity Reaction Status Date / Time acetaminophen [From Vicodin] Allergy Severe Anaphylaxis Verified 01/24/24 07:31 codeine Allergy Severe Anaphylaxis Verified 01/24/24 07:31 hydrocodone [From Vicodin] Allergy Severe Anaphylaxis Verified 01/24/24 07:31 moxifloxacin Allergy Severe Anaphylaxis Verified 01/24/24 07:31 bee venom protein (honey bee) Allergy Anaphylaxis Verified 01/24/24 07:31 pencillin Allergy Severe Anaphylaxis Uncoded 01/24/24 07:31 Review of Systems Review of Systems Narrative: Pertinent positive and negative findings as per HPI Patient History Medical History Anaphylaxis due to hymenoptera venom Social History Smoking Status: Current every day smoker quit status: considering quitting Smoking Status: Current every day smoker tobacco type: cigarettes alcohol intake frequency: 0-2 drinks per day Alcohol type: beer Substance Use Type: marijuana Exam Initial Vital Signs Initial Vital Signs: Vital Signs Temperature 97.7 F 01/24/24 07:26 Pulse Rate 67 01/24/24 07:26 Respiratory Rate 18 01/24/24 07:26 Blood Pressure 105/72 01/24/24 07:26 Pulse Oximetry 100 01/24/24 07:26 Oxygen Delivery Method Room Air 01/24/24 07:26 General: Healthy appearing, in no acute distress. Able to give a complete and coherent history. Well-nourished well-developed HEENT: Moist mucous membranes, normal sclera with reactive pupils, Respiratory: Lungs are clear to auscultation, no wheezing no rales no rhonchi. Full and symmetrical air movement Cardiac: Regular rate and rhythm no murmurs no bruits Abdomen: Soft, nontender, good bowel tones, no flank pain Skin: Warm and dry, minor erythema to the left small toe Neurologic: Grossly neurologically intact with no obvious asymmetries or abnormalities Extremities: Left small toe with tiny puncture wound likely the site of the bee sting, smaller wound proximal that looks like an area where she was scratching in trying to remove a stinger. No obvious stingers still in the skin. The toe is swollen and warm, I do not suspect infection at this time Psych: Cooperative, appropriate insight and affect Course Vital Signs Vital signs: Vital Signs - 8 hr 01/24/24 07:26 Temperature 97.7 F Pulse Rate 67 Respiratory Rate 18 Blood Pressure 105/72 Pulse Oximetry 100 Oxygen Delivery Method Room Air MDM - Allergic Reaction MDM Narrative Medical decision making narrative: CC: Bee sting left small toe last night Complicating co-morbidities: History of anaphylaxis, she gave herself 2 doses of epi Data collected from: patient Differential considered: Infection, retained be parts, prolonged anaphylactic reaction, swelling and tenderness secondary to staying itself Exam documented above, pertinent findings include: Lungs are clear, patient is well perfused vitals are reassuring. Abdomen is soft. Left small toe erythematous consistent with minor reaction from a sting but not infected. No lymphangitic streaking appreciated Treatments: She has given a dose of p.o. prednisone in the emergency department along with Zofran. We will be given a prescription for Medrol Dosepak, additional Zofran and will refill her EpiPen prescription Discussion: 58-year-old woman with a history of anaphylaxis to bee stings. Two doses of epinephrine yesterday after being stung in the left small toe. Seems to be doing well. Will have her do a prednisone taper, Zofran for nausea presumably secondary to the epinephrine but possibly related to mild continued reaction. No evidence of impending airway distress, hypertensive crisis or significant hypotension. Patient is reassured, there was no evidence for antibiotics due to infection in the small toe. Will place antibiotic ointment and a Band-Aid to make sure that infection does not become an issue. EpiPen is refilled. Questions were answered she is safe for discharge Discharge Plan Departure Patient Disposition: Home Clinical Impression: Accidental bee sting Anaphylaxis due to hymenoptera venom Qualifiers: Encounter type: initial encounter Injury intent: accidental or unintentional Qualified Code(s): T63.481A - Toxic effect of venom of other arthropod, accidental (unintentional), initial encounter Instructions: DI for Anaphylaxis Activity Restrictions/Additional Instructions: Thank you for coming in this morning It does sound like you did everything right yesterday Your toe is tender from the sting itself and slightly swollen however I do not see any retained stingers and there is no evidence of infection at this time Please use antibiotic ointment to the toe to prevent infection. 400 mg of ibuprofen every 6 hours can be helpful with pain over the next couple of days if needed. Soaking the foot in cool water may be helpful for symptoms. Keeping the foot elevated definitely will help. I have given you a prescription for Zofran to use for nausea if needed I am going to suggest a Medrol Dosepak, this is 5 additional days of steroid, please start tomorrow as you were given your initial dose in the emergency department I have refilled your epi pens On prescriptions have been electronically transmitted to [facility] If you find that you are getting worse or develop any new symptoms, please feel free to return to the emergency department for further evaluation. Prescriptions: New ondansetron 4 mg tablet,disintegrating 4 mg PO Q8H PRN (Reason: nausea and vomiting) Qty: 14 1RF epinephrine 0.3 mg/0.3 mL auto-injector 0.3 mg IM Q5-15M PRN (Reason: anaphylaxis) Qty: 2 1RF Rx Instructions: do not exceed 3 doses per episode methylprednisolone [Medrol (Art)] 4 mg tablets,dose pack See Rx Instructions .ROUTE .COMPLEX Qty: 21 0RF Rx Instructions: orally per package directions No Action albuterol sulfate 90 mcg/actuation HFA aerosol inhaler inhalation ibuprofen 600 mg tablet 600 mg PO Q6H PRN baclofen 10 mg tablet 10 mg PO 3XD sucralfate 1 gram tablet 1 g PO 4XD estradiol 0.5 mg tablet 0.5 mg PO DAILY Rx Instructions: off 5 days; repeat cycle benzonatate 100 mg capsule 100 mg PO TID PRN (Reason: cough) Qty: 14 0RF ondansetron 4 mg tablet,disintegrating 4 mg PO Q8H PRN (Reason: nausea and vomiting) Qty: 20 0RF epinephrine [EpiPen 2-Art] 0.3 mg/0.3 mL auto-injector 0.3 mg IM Q5-15M PRN (Reason: anaphylaxis) Qty: 2 0RF Rx Instructions: do not exceed 3 doses per episode Referrals: Fran Askew MD [Primary Care Provider] - Stand Alone Forms: Patient Portal/API
[2024-01-24] MEDS: IBUPROFEN 400 MG TABLET PO (08:22)
[2024-01-24] MEDS: HYDROMORPHONE 2 MG TABLET 4 MG PO (08:22)
[2024-01-24] MEDS: BACITRACIN OINT 0.9 GM PCKT 1 APPLIC TOP (08:34)
[2024-01-24] MEDS: predniSONE 20 MG TABLET 60 MG PO (08:34)
[2024-01-24] MEDS: ONDANSETRON 4 MG ODT SL (08:34)
[2024-01-24 08:42] VITALS: BP 110/62; PULSE 58; RESP 16; O2SAT 100
== END 2024-01-24 08:44 | disposition home or self-care (01) ==
PROVIDERS: Emergency Provider Emergency Medicine; PCP Family Medicine
DX: T63.441A Toxic effect of venom of bees, accidental (unintentional), initial encounter (principal)
CPT/HCPCS: 99283

== ENCOUNTER 2024-03-09 03:00 | Emergency (ER) | payer SELFPAY ==
[2024-03-09 03:05] VITALS: BP 113/72; PULSE 67; RESP 16; TEMP 36; O2SAT 100; BMI 22.0
[2024-03-09 03:10] VITALS: PULSE 67; RESP 24; O2SAT 98
[2024-03-09] MEDS: ALBUTEROL 2.5 MG/3 ML NEB (ADULT) 5 MG INH ×2 (03:10→03:28)
[2024-03-09 03:28] VITALS: PULSE 64; RESP 18; O2SAT 96
[2024-03-09] MEDS: ALBUTEROL HFA PREPACK 1 BOX MISC (03:36)
--- NOTE | 2024-03-09 03:41 | ED.ASTHMA ---
HPI - Asthma General Chief Complaint: Asthma Stated Complaint: asthma attack and out of inhaler Time Seen by Provider: 03/09/24 03:03 Source: patient Mode of arrival: Ambulatory History of Present Illness HPI Narrative: Patient is a 59-year-old female history of asthma, current everyday smoker presenting today with sudden onset of shortness of breath. She reports that roughly 1 hour ago she woke from a sleep with shortness of breath. She was having some chest tightness no fever or chills she was feeling well earlier in the day. She reports that she is out of her albuterol inhaler. She frequently wakes up choking and coughing and it will sometimes put her into an asthma attack Related Data Home Medications Medication Instructions Recorded Confirmed albuterol sulfate 90 mcg/actuation inhalation 07/01/23 07/01/23 aerosol inhaler baclofen 10 mg tablet 10 mg PO 3XD 07/01/23 07/01/23 estradiol 0.5 mg tablet 0.5 mg PO DAILY 07/01/23 07/01/23 ibuprofen 600 mg tablet 600 mg PO Q6H PRN 07/01/23 07/01/23 sucralfate 1 gram tablet 1 g PO 4XD 07/01/23 07/01/23 Previous Rx's Medication Instructions Recorded epinephrine 0.3 mg/0.3 mL 0.3 mg (0.3 mL) IM Q5-15M PRN 04/29/23 injection, auto-injector (EpiPen anaphylaxis #2 ea 2-Art) ondansetron 4 mg disintegrating 4 mg PO Q8H PRN nausea and 06/24/23 tablet vomiting #20 tabs benzonatate 100 mg capsule 100 mg PO TID PRN cough #14 caps 07/01/23 epinephrine 0.3 mg/0.3 mL 0.3 mg (0.3 mL) IM Q5-15M PRN 01/24/24 injection, auto-injector anaphylaxis #2 ea methylprednisolone 4 mg tablets in See Rx Instructions PO .COMPLEX 01/24/24 a dose pack (Medrol (Art)) #21 ea ondansetron 4 mg disintegrating 4 mg PO Q8H PRN nausea and 01/24/24 tablet vomiting #14 tabs Allergies Allergy/AdvReac Type Severity Reaction Status Date / Time acetaminophen [From Vicodin] Allergy Severe Anaphylaxis Verified 01/24/24 07:31 codeine Allergy Severe Anaphylaxis Verified 01/24/24 07:31 hydrocodone [From Vicodin] Allergy Severe Anaphylaxis Verified 01/24/24 07:31 moxifloxacin Allergy Severe Anaphylaxis Verified 01/24/24 07:31 bee venom protein (honey bee) Allergy Anaphylaxis Verified 01/24/24 07:31 pencillin Allergy Severe Anaphylaxis Uncoded 01/24/24 07:31 Patient History Medical History Anaphylaxis due to hymenoptera venom Social History Smoking Status: Current every day smoker quit status: considering quitting Smoking Status: Current every day smoker tobacco type: cigarettes alcohol intake frequency: 0-2 drinks per day Alcohol type: beer Substance Use Type: marijuana Exam Initial Vital Signs Initial Vital Signs: Vital Signs Temperature 96.8 F L 03/09/24 03:05 Pulse Rate 67 03/09/24 03:05 Respiratory Rate 16 03/09/24 03:05 Blood Pressure 113/72 03/09/24 03:05 Pulse Oximetry 100 03/09/24 03:05 Oxygen Delivery Method Room Air 03/09/24 03:05 GENERAL: Alert 51-year-old female no acute distress and in no acute distress. HEENT: Head atraumatic,EOMI, pupils reactive, face symmetric, moist mucous membranes CARDIOVASCULAR: Regular rate and rhythm without murmurs, rubs or gallops. RESPIRATORY: Bilateral wheezing and coarse breath sounds speaks in full sentences ABDOMEN: Soft, nontender. Normoactive bowel sounds all 4 quadrants. No guarding or rebound. EXTREMITIES: Normal range of motion, no clubbing or edema. Neurovascularly intact NEUROLOGICAL: Alert and oriented x4.Normal gait and speech. Cranial nerves II through XII grossly intact. SKIN: Warm, dry, no laceration, no petechiae, no rashes or lesions. Course Orders Ordered: Discontinued Medications Albuterol (Albuterol 2.5 Mg/3 Ml Neb (Adult)) 5 mg INH NOW ONE Stop: 03/09/24 03:11 Last Admin: 03/09/24 03:10 Dose: 5 mg Documented By: AYDEN Albuterol (Albuterol 2.5 Mg/3 Ml Neb (Adult)) 5 mg INH NOW ONE Stop: 03/09/24 03:26 Last Admin: 03/09/24 03:28 Dose: 5 mg Documented By: AYDEN Albuterol (Albuterol Hfa Prepack) 1 box MISC DIRECTED ONE Stop: 03/09/24 03:32 Last Admin: 03/09/24 03:36 Dose: 1 box Documented By: AYDEN Vital Signs Vital signs: Vital Signs - 8 hr 03/09/24 03:05 03/09/24 03:10 03/09/24 03:28 Temperature 96.8 F L Pulse Rate 67 67 64 Respiratory Rate 16 24 18 Blood Pressure 113/72 Pulse Oximetry 100 98 96 Oxygen Delivery Method Room Air Room Air Room Air Oxygen Flow Rate 0 0 Fraction of Inspired Oxygen 21 21 MDM - Asthma MDM Narrative Medical decision making narrative: Patient 59-year-old female current smoker history of asthma presenting today with difficulty breathing. She is currently out of her albuterol inhaler. She is wheezing and having coarse breath sounds bilaterally. She responded very well to her 1st albuterol nebulizer and required more. She cleared easily. She was given prepack and a spacer. At this time I do not think she needs any further workup or prednisone. Discharge Plan Departure Patient Disposition: Home Clinical Impression: Asthma with acute exacerbation Instructions: DI for Asthma -- Adult Activity Restrictions/Additional Instructions: *You have been diagnosed with asthma exacerbation *What to do: At this time use albuterol as needed *Continue to take medications as directed Albuterol inhaler 1-2 puffs every 4 hours for cough or shortness of breath *Follow up with your primary care provider in 2-3 days or call [phone] *Return to ER if you should have increasing shortness of breath cough or any new, worsening or concerning symptoms Prescriptions: No Action albuterol sulfate 90 mcg/actuation HFA aerosol inhaler inhalation ibuprofen 600 mg tablet 600 mg PO Q6H PRN baclofen 10 mg tablet 10 mg PO 3XD sucralfate 1 gram tablet 1 g PO 4XD estradiol 0.5 mg tablet 0.5 mg PO DAILY Rx Instructions: off 5 days; repeat cycle benzonatate 100 mg capsule 100 mg PO TID PRN (Reason: cough) Qty: 14 0RF ondansetron 4 mg tablet,disintegrating 4 mg PO Q8H PRN (Reason: nausea and vomiting) Qty: 20 0RF epinephrine [EpiPen 2-Art] 0.3 mg/0.3 mL auto-injector 0.3 mg IM Q5-15M PRN (Reason: anaphylaxis) Qty: 2 0RF Rx Instructions: do not exceed 3 doses per episode ondansetron 4 mg tablet,disintegrating 4 mg PO Q8H PRN (Reason: nausea and vomiting) Qty: 14 1RF epinephrine 0.3 mg/0.3 mL auto-injector 0.3 mg IM Q5-15M PRN (Reason: anaphylaxis) Qty: 2 1RF Rx Instructions: do not exceed 3 doses per episode methylprednisolone [Medrol (Art)] 4 mg tablets,dose pack See Rx Instructions .ROUTE .COMPLEX Qty: 21 0RF Rx Instructions: orally per package directions Referrals: Fran Askew MD [Primary Care Provider] - Stand Alone Forms: Patient Portal/API
[2024-03-09 03:54] VITALS: BP 116/67; PULSE 66; RESP 16; O2SAT 98
== END 2024-03-09 03:56 | disposition home or self-care (01) ==
PROVIDERS: Emergency Provider Emergency Medicine; PCP Family Medicine
DX: J45.901 Unspecified asthma with (acute) exacerbation (principal); F17.210 Nicotine dependence, cigarettes, uncomplicated
CPT/HCPCS: 99283; J7613

== ENCOUNTER → 2024-06-04 08:08 | Outpatient (CLI) | payer OTHER, SELFPAY | PROVIDERS: PCP Family Medicine; Visit Provider Physician Assistant Surgical | DX: R30.0 Dysuria (principal) | CPT/HCPCS: 87086 ==